=== PATIENT | female | born 1940 | race Hispanic/Latino ===

== ENCOUNTER 2021-02-05 12:07 | Inpatient (IN) | payer MEDICARE, OTHER ==
[~2021-02-05] VITALS: Ht 154.9 cm; Wt 79.8 kg
[2021-02-05 13:21] LABS: ANION GAP 17.5 mmol/L (8-16); CALCIUM 9.3 mg/dL (8.4-10.2); CREATININE, SERUM 0.91 mg/dL (0.57-1.11); POTASSIUM 4.5 mmol/L (3.5-5.1)
[2021-02-05 13:49] LABS: BASOPHILS % 0.5 % (0.0-1.0); EOSINOPHILS # (AUTO) 0.1 (0.0-0.4); EOSINOPHILS % 1.9 % (0.0-6.0); HEMATOCRIT 35.5 % (34.2-44.1); HEMOGLOBIN 11.2 g/dL (12.0-16.0); LYMPHOCYTES # (AUTO) 1.3 (1.0-3.2); LYMPHOCYTES % 22.6 % (18.0-39.1); MEAN CORPUSCULAR HEMOGLOBIN 27.9 pg (28-32); MEAN CORPUSCULAR HGB CONC 31.5 g/dL (31-35); MEAN CORPUSCULAR VOLUME 88.5 fL (81-99); MONOCYTES # (AUTO) 0.6 (0.2-0.8); MONOCYTES % 9.7 % (4.4-11.3); NEUTROPHILS # (AUTO) 3.8 (2.1-6.9); NEUTROPHILS % 65.1 % (38.7-80.0); PLATELET COUNT 279 x10e3/uL (140-360); RED BLOOD COUNT 4.01 x10e6/uL (3.6-5.1)
[2021-02-05] MEDS ORDERED: ELIQUIS5 MG PO (14:06)
[2021-02-05 14:16] LABS: INR 0.94; PROTHROMBIN TIME 12.8 seconds (11.9-14.5)
[2021-02-05 14:25] LABS: PARTIAL THROMBOPLASTIN TIME 21.6 seconds (23.8-35.5)
[2021-02-05] MEDS ORDERED: ONDANSETRON HCL INJ 2MG/ML 2ML 2 MG/ML VIAL IV PRN (14:30)
[2021-02-05 16:54] VITALS: BP 132/77
[2021-02-05 17:19] VITALS: BP 132/77
[2021-02-05] MEDS ORDERED: LANTUS 3ML100 UNITS/ (17:35)
[2021-02-05] MEDS ORDERED: ATORVASTATIN CA10 MG PO (17:35)
[2021-02-05] MEDS ORDERED: SERTRALINE HCL50 MG PO (17:35)
[2021-02-05] MEDS ORDERED: IBANDRONATE SO150 MG (17:35)
[2021-02-05] MEDS ORDERED: OMEPRAZOLE40 MG PO (17:35)
[2021-02-05] MEDS ORDERED: NITROFURANTOIN100 MG PO (17:35)
[2021-02-05] MEDS ORDERED: GLIPIZIDE5 MG PO (17:35)
[2021-02-05] MEDS ORDERED: FARXIGA5 MG (17:35)
[2021-02-05] MEDS ORDERED: AMLODIPINE BESYL5 MG PO (17:35)
[2021-02-05] MEDS ORDERED: VASCEPA1 GM (17:35)
[2021-02-05] MEDS ORDERED: LISINOPRIL10 MG PO (17:35)
[2021-02-05 20:08] VITALS: BP 150/64
[2021-02-05] MEDS: ENOXAPARIN INJ 80 MG/0.8 ML SYR SC SCH (21:01)
[2021-02-05 21:57] VITALS: BP 150/64
[2021-02-06] VITALS (7 sets, daily range): BP systolic 126–146; BP diastolic 63–76
[2021-02-06] MEDS: ENOXAPARIN INJ 80 MG/0.8 ML SYR SC SCH ×2 (08:58→21:09)
[2021-02-06] MEDS ORDERED: IOPAMIDOL 370 MG/ML 200 ML INFUS..BTL INJ ONE (12:01)
[2021-02-06] MEDS ORDERED: SODIUM CHLORIDE 0.9% 50ML 50 ML ONE (12:01)
[2021-02-06 12:21] LABS: FERRITIN 44.08 ng/mL (4.63-204.00)
[2021-02-07] VITALS (8 sets, daily range): BP systolic 121–157; BP diastolic 50–81
[2021-02-07] MEDS: ENOXAPARIN INJ 80 MG/0.8 ML SYR SC SCH ×2 (08:52→21:07)
[2021-02-08] VITALS: BP 134/54
[2021-02-08 04:00] VITALS: BP 154/59
[2021-02-08 06:41] LABS: HEMATOCRIT 33.8 % (34.2-44.1); HEMOGLOBIN 11.1 g/dL (12.0-16.0); MEAN CORPUSCULAR HEMOGLOBIN 28.3 pg (28-32); MEAN CORPUSCULAR HGB CONC 32.8 g/dL (31-35); MEAN CORPUSCULAR VOLUME 86.2 fL (81-99); PLATELET COUNT 264 x10e3/uL (140-360); RED BLOOD COUNT 3.92 x10e6/uL (3.6-5.1); RED CELL DISTRIBUTION WIDTH 13.9 % (11.7-14.4)
[2021-02-08 07:08] LABS: CALCIUM 9.5 mg/dL (8.4-10.2); CREATININE, SERUM 0.96 mg/dL (0.57-1.11)
[2021-02-08 08:30] VITALS: BP 142/59
[2021-02-08 08:34] VITALS: BP 142/59
[2021-02-08] MEDS ORDERED: APIXABAN 5 MG TABLET PO SCH ×2 (09:00→17:00)
[2021-02-08] MEDS: APIXABAN 5 MG TABLET PO SCH ×2 (09:57→16:20)
[2021-02-08] MEDS ORDERED: DEXTROSE 50% SYRINGE 50 ML IV PRN (12:15)
[2021-02-08] MEDS ORDERED: ELIQUIS5 MG PO (12:16)
[2021-02-08 12:37] VITALS: BP 138/58
[2021-02-08] MEDS ORDERED: INSULIN LISPRO 100 UNIT/1 ML 3ML VIAL SQ SCH (16:30)
[2021-02-08 16:49] VITALS: BP 136/46
== END 2021-02-08 16:59 | disposition home or self-care (01) | DRG 299 ==
LOC: ER 12:20 → ERHOLD 14:21 → MED/SURG3 16:08 → OBSVTOIN 02-06 08:38
PROVIDERS: ADMIT Internal Medicine; ATTEND Internal Medicine
DX: I82.411 Acute embolism and thrombosis of right femoral vein (principal); I26.99 Other pulmonary embolism without acute cor pulmonale; E78.5 Hyperlipidemia, unspecified; E11.22 Type 2 diabetes mellitus with diabetic chronic kidney disease; I12.9 Hypertensive chronic kidney disease with stage 1 through stage 4 chronic kidney disease, or unspecified chronic kidney disease; D64.9 Anemia, unspecified; N18.30 Chronic kidney disease, stage 3 unspecified; Z90.49 Acquired absence of other specified parts of digestive tract; Z88.5 Allergy status to narcotic agent; Z86.73 Personal history of transient ischemic attack (TIA), and cerebral infarction without residual deficits; Z20.822 Contact with and (suspected) exposure to COVID-19; Z87.891 Personal history of nicotine dependence; B94.8 Sequelae of other specified infectious and parasitic diseases; Z79.4 Long term (current) use of insulin
CPT/HCPCS: 36415; 71260; 80048; 82607; 82728; 82746; 82948; 83540; 83880; 84466; 85007; 85025; 85027; 85610; 85730; 93971; 99284; G0378; J1650; Q9967; U0002

== ENCOUNTER 2024-02-13 16:30 | Emergency (ER) | payer MEDICARE, OTHER ==
[~2024-02-13] VITALS: Ht 157.5 cm; Wt 75.3 kg
[~2024-02-13 16:30] MED LIST: AMLODIPINE BESYL5 MG PO; ATORVASTATIN CA10 MG PO; ELIQUIS5 MG PO; FARXIGA5 MG; GLIPIZIDE5 MG PO; IBANDRONATE SO150 MG; LANTUS 3ML100 UNITS/; LISINOPRIL10 MG PO; NITROFURANTOIN100 MG PO; OMEPRAZOLE40 MG PO; SERTRALINE HCL50 MG PO; VASCEPA1 GM
[2024-02-13 17:00] VITALS: TEMP 99.5
[2024-02-13] MEDS ORDERED: SODIUM CHLORIDE FLUSH 10 ML SYR IV PRN (17:30)
[2024-02-13 17:36] LABS: BASOPHILS % 0.2 % (0.0-1.0); EOSINOPHILS # (AUTO) 0.1 (0.0-0.4); EOSINOPHILS % 1.5 % (0.0-6.0); HEMATOCRIT 37.4 % (34.2-44.1); LYMPHOCYTES # (AUTO) 1.3 (1.0-3.2); LYMPHOCYTES % 15.6 % (18.0-39.1); MEAN CORPUSCULAR HEMOGLOBIN 29.8 pg (28-32); MEAN CORPUSCULAR HGB CONC 32.1 g/dL (31-35); MEAN CORPUSCULAR VOLUME 92.8 fL (81-99); MONOCYTES # (AUTO) 0.6 (0.2-0.8); MONOCYTES % 7.4 % (4.4-11.3); NEUTROPHILS # (AUTO) 6.2 (2.1-6.9); NEUTROPHILS % 75.1 % (38.7-80.0); PLATELET COUNT 254 x10e3/uL (140-360); RED BLOOD COUNT 4.03 x10e6/uL (3.6-5.1); RED CELL DISTRIBUTION WIDTH 13.2 % (11.7-14.4); WHITE BLOOD COUNT 8.25 x10e3/uL (4.8-10.8)
[2024-02-13 17:47] LABS: INR 1.01; PROTHROMBIN TIME 13.8 seconds (11.9-14.5)
[2024-02-13 17:48] LABS: PARTIAL THROMBOPLASTIN TIME 24.7 seconds (23.8-35.5)
[2024-02-13 17:55] LABS: CREATINE KINASE 39 IU/L (29-168); LIPASE 20 U/L (8-78)
[2024-02-13 17:57] LABS: ALBUMIN 3.5 g/dL (3.5-5.0); ALBUMIN/GLOBULIN RATIO 1.2 (0.8-2.0); ANION GAP 15.9 mmol/L (8-16); CREATININE, SERUM 1.51 mg/dL (0.57-1.11); POTASSIUM 3.9 mmol/L (3.5-5.1); TOTAL PROTEIN 6.5 g/dL (6.5-8.1)
[2024-02-13 18:03] LABS: TROPONIN I < 0.001 ng/mL (0-0.300)
[2024-02-13] MEDS: SODIUM CHLORIDE 0.9% 1000ML 1,000 ML IV STA (18:12)
[2024-02-13] MEDS: ONDANSETRON HCL INJ 2MG/ML 2ML 2 MG/ML VIAL IV STA (18:12)
[2024-02-13 18:20] LABS: CLARITY,URINE CLEAR (CLEAR); COLOR,URINE YELLOW (YELLOW)
[2024-02-13 18:21] LABS: BILIRUBIN,URINE NEGATIVE (NEGATIVE); GLUCOSE, URINE 500 (NEGATIVE); KETONES,URINE NEGATIVE (NEGATIVE); LEUKOCYTE ESTERASE ,URINE SMALL (NEGATIVE); NITRITE,URINE NEGATIVE (NEGATIVE); PH,URINE 5.5 (5 - 7); PROTEIN,URINE DIPSTICK NEGATIVE (NEGATIVE); URINE UROBILINOGEN 0.2 mg/dL (0.2 - 1)
[2024-02-13 18:28] LABS: BACTERIA,URINE MODERATE /HPF; RBC,URINE 0-5 /HPF (0-5); WBC,URINE (MAN) >50 /HPF (0-5)
[2024-02-13 18:29] LABS: EPITHELIAL CELLS,URINE MANY /LPF
[2024-02-13 18:30] LABS: TRANSITIONAL EPI CELLS,URINE FEW
[2024-02-13 20:00] VITALS: PULSE 76; RESP 17; O2SAT 100
== END 2024-02-13 20:14 | disposition home or self-care (01) ==
LOC: ER 17:06
DX: R50.9 Fever, unspecified (principal); R19.7 Diarrhea, unspecified
CPT/HCPCS: 36415; 74176; 80053; 81001; 82550; 83690; 83735; 84484; 85025; 85610; 85730; 87086; 99284; J2405; J2470; J7030